=== PATIENT | male | born 1995 | race Caucasian/White ===

== ENCOUNTER 2016-09-14 16:37 | Emergency (ER) | payer BC ==
[2016-09-14 17:15] VITALS: BP 144/56
--- NOTE | 2016-09-14 17:52 | ED ---
Respiratory - HPI Summary HPI Summary: 21M presents with cold like symptoms since Saturday. He states that he feels SOB and has been coughing. He denies any chest pain. He admits to sinus congestion but denies any fever, sore throat, or abdominal pain. He states that his SOB and cough gets worst with excretion. He denies any family history of CAD or blood clots. He denies any pain or swelling in his calf muscles. - History of Current Complaint Chief Complaint: UCRespiratory Stated Complaint: COUGH,CONGESTION Time Seen by Provider: 09/14/16 17:38 - Allergy/Home Medications Allergies/Adverse Reactions: Allergies Allergy/AdvReac Type Severity Reaction Status Date / Time Latex Allergy Mild Rash Verified 09/14/16 17:15 Home Medications: Home Medications buPROPion TAB* [Wellbutrin TAB*] 100 mg PO DAILY 09/14/16 [History Confirmed ] PMH/Surg Hx/FS Hx/Imm Hx Endocrine/Hematology History: Denies: Hx Diabetes, Hx Thyroid Disease Cardiovascular History: Denies: Hx Hypertension Respiratory History: Denies: Hx Asthma, Hx Chronic Obstructive Pulmonary Disease (COPD) GI History: Denies: Hx Ulcer History: Denies: Hx Renal Disease Neurological History: Reports: Hx Seizures - today(01/16) was 1st SZ Psychiatric History: Reports: Hx Anxiety, Hx Depression - Cancer History Cancer Type, Location and Year: anxiety/depression - Surgical History Surgery Procedure, Year, and Place: tubes in ear, tonsil, cleft palate repair. Infectious Disease History: No Infectious Disease History: Denies: Hx Clostridium Difficile, Hx Hepatitis, Hx Human Immunodeficiency Virus (HIV), History Other Infectious Disease, Traveled Outside the [place] in Last 30 Days - Family History Known Family History: Positive: Unknown - unable to obtain from pt Negative: Cardiac Disease - Social History Alcohol Use: None Substance Use Type: Reports: None Substance Use Comment - Amount & Last Used: unknown amounbt wellbutrin prozac Hx Tobacco Use: Yes Smoking Status (MU): Current Every Day Smoker Type: Cigarettes Amount Used/How Often: 1 ppd Have You Smoked in the Last Year: Yes Review of Systems Negative: Fever Negative: Chest Pain Respiratory: Other Positive: Cough Negative: Abdominal Pain All Other Systems Reviewed And Are Negative: Yes Physical Exam Triage Information Reviewed: Yes Vital Signs On Initial Exam: Initial Vitals Temp Pulse Resp BP Pulse Ox 98.9 F 96 18 144/56 100 09/14/16 17:11 09/14/16 17:11 09/14/16 17:11 09/14/16 17:11 09/14/16 17:11 Vital Signs Reviewed: Yes Appearance: Positive: Well-Appearing Skin: Positive: Warm, Dry Head/Face: Positive: Normal Head/Face Inspection Eyes: Positive: Normal, Conjunctiva Clear ENT: Positive: Normal ENT inspection, Pharynx normal, TMs normal Neck: Positive: Supple, Nontender, No Lymphadenopathy Respiratory/Lung Sounds: Positive: Breath Sounds Present, Wheezes, Other - neg egophony Cardiovascular: Positive: Normal, RRR Diagnostics - Vital Signs Vital Signs Temp Pulse Resp BP Pulse Ox 09/14/16 17:11 98.9 F 96 18 144/56 100 - Laboratory Lab Statement: Any lab studies that have been ordered have been reviewed, and results considered in the medical decision making process. Disposition - Course Course Of Treatment: 21M presents with cold like symptoms since Saturday. admits to cough and SOB. is a smoker but does not have asthma. states feels that he is wheezing and heard some wheezes on exam. neg egophony. do not suspect has PE as vitals good. will treat with inhaler and tessalon. patient understands and agrees with plan - Differential Dx - Cardiopulmonary Differential Diagnoses - Cardiopulmonary: Bronchitis, Influenza, Pulmonary Embolism - Diagnoses Provider Diagnoses: Upper respiratory infection Discharge - Discharge Plan Condition: Good Disposition: HOME Prescriptions: Albuterol HFA INHALER* [Ventolin HFA Inhaler*] 1 puff INH Q4H PRN #1 mdi PRN Reason: Cough Benzonatate CAP* [Tessalon 100 MG CAP*] 100 mg PO TID #15 cap Patient Education Materials: Upper Respiratory Infection (ED) Referrals: [facility] [facility] [Outside] Additional Instructions: Use Tessalon three times a day for cough Use inhaler one puff every 4 hours for cough as needed Use saline in the nose for nasal congestion Use humidifier or place warm bowls of water around the room for cough Establish care with primary care physician Return to ED if develop any new or worsening symptoms
== END 2016-09-14 18:20 | disposition home or self-care (01) ==
LOC: UCEAST 16:37
DX: J06.9 Acute upper respiratory infection, unspecified (principal); F17.210 Nicotine dependence, cigarettes, uncomplicated
CPT/HCPCS: 99212; G0463

== ENCOUNTER 2018-03-21 07:34 | Day surgery (SDC) | payer BC ==
--- NOTE | 2018-03-07 07:49 | HP ---
AMENDED REPORT NOW INCLUDES DESIGNATED COSIGNER PREOPERATIVE HISTORY AND PHYSICAL: DATE OF ADMISSION/SURGERY: 03/21/18 DATE OF OFFICE VISIT/ENCOUNTER: 03/05/18 ATTENDING SURGEON: Tyesha Montes MD * (DICTATED BY IRASEMA YAP) PROCEDURE: Right wrist carpal tunnel release. CHIEF COMPLAINT: Bilateral hand numbness and tingling. HISTORY OF PRESENT ILLNESS: This is a 22-year-old transgendered male who complains of numbness and tingling in his bilateral hands, much worse on the right than on the left. This has been going on off and on for years, but more recently it has become quite bothersome in the right hand. He does not have a lot of pain, but he has numbness mainly in the thumb, index and middle fingers. He has not had any nerve conduction studies and he denies any injury. He has tried using a brace at night, which was minimally helpful. 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 He is interested in pursuing surgical intervention at this time for his right wrist. PAST MEDICAL HISTORY: 1. Sleep apnea, no CPAP. 2. 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 3. Depression/anxiety. PAST SURGICAL HISTORY: 1. Cleft palate repair. 2. Tympanostomy tube insertion. 3. Tonsillectomy. 4. Dental surgery. CURRENT MEDICATIONS: 1. Bupropion HCl ER 300 mg daily. 2. Testosterone cypionate. 3. Excedrin [id number] p.r.n. ALLERGIES: No known drug allergies. There is an allergy to LATEX, causes skin irritation. FAMILY MEDICAL HISTORY: Diabetes, cancer, mental illness, and tuberous sclerosis. SOCIAL HISTORY: The patient is employed as an marketing graphics specialist at [employer]. He is a current smoker. He smokes approximately 1/2 pack to 1 pack per day, he has done so for the past 7 years. He denies recreational drug use. He drinks alcohol on occasion. REVIEW OF SYSTEMS: Negative for general, cephalic, cardiovascular, respiratory , GI, . Musculoskeletal: Positive for current complaint and chronic back pain. Integumentary and Endocrine: Negative. Neurologic: Positive for depression/anxiety. Hematologic: Negative. Infectious Disease: Negative for history of MRSA, hepatitis C, HIV. PHYSICAL EXAMINATION GENERAL: Well-developed, well-nourished 22-year-old male, in no acute distress. VITAL SIGNS: Height 5 feet 5 inches, weight 274 pounds. Blood pressure 126/72 , pulse rate 82. HEENT: Normocephalic, atraumatic. Pupils are equal, round, and reactive to light and accommodation. Extraocular movements are intact. Throat is clear. NECK: Supple. No palpable lymph nodes. PULMONARY: Lungs are clear to auscultation bilaterally. No wheezes, rales, or rhonchi. CARDIOVASCULAR: Regular rate and rhythm. S1, S2. No murmurs, rubs, or gallops. No edema. ABDOMEN: Positive bowel sounds. Soft, nontender. NEUROLOGICAL: Alert and oriented x3. Cranial nerves II through XII are intact. MUSCULOSKELETAL: On exam of his right hand, there is no thenar wasting. He has weakness with thumb abduction. He has good motion in his fingers and his wrist. He has a positive median nerve compression test and positive Phalen's test. Sensation is intact to light touch throughout the hand. IMPRESSION: Right carpal tunnel syndrome. PLAN: The patient is scheduled to undergo a right wrist carpal tunnel release with Dr. Montes on 03/21/18. He will return to the office 10 days postop for followup and suture removal. A prescription for Ultracet was e-scribed to the patient's pharmacy for postoperative pain management. IRASEMA YAP [id number]/[facility] #: [id number] [place]
[~2018-03-21 07:34] MED LIST: Buffered Lidocaine 0.9% SYRIN* 5 ML/SYR SYRINGE INTRADERM ONE; Lidocaine 1% INJ* 10 MG/ML 30 ML SDV ONE; Morphine VIAL* 10 MG/ML 1 ML VIAL ONE
[2018-03-21] MEDS ORDERED: Morphine VIAL* 10 MG/ML 1 ML VIAL ONE (08:07)
[2018-03-21] MEDS ORDERED: Naloxone* 0.4 MG/ML 1 ML VIAL IV PRN (08:30)
[2018-03-21] MEDS ORDERED: Lidocaine 2% PF * 5 ML VIAL ONE (08:44)
[2018-03-21] MEDS ORDERED: Propofol* 10 MG/ML 20 ML BTL IV PUSH ONE (08:44)
[2018-03-21] MEDS ORDERED: fentaNYL* 50 MCG/ML 2 ML VIAL (100 MCG VIAL) ONE (08:44)
[2018-03-21 09:28] VITALS: BP 112/78
--- NOTE | 2018-03-21 23:53 | OP ---
DATE OF OPERATION: 03/21/18 - [facility] DATE OF : [birth year] SURGEON: Tyesha Montes MD BUTCHER MEAT: IRASEMA Howard ANESTHESIA: Local MAC. PRE-OP DIAGNOSIS: Right carpal tunnel syndrome. POST-OP DIAGNOSIS: Right carpal tunnel syndrome. OPERATIVE PROCEDURE: Right carpal tunnel release. ESTIMATED BLOOD LOSS: Zero. TOURNIQUET TIME: About 8 minutes. INDICATION FOR PROCEDURE: Dudley is a 22-year-old male with numbness and tingling in the median nerve distribution of his right hand. He presents for right carpal tunnel release. DESCRIPTION OF PROCEDURE: The patient was brought to the operating room, was given a sedation anesthetic and a local infiltration of 10 cc 1% plain lidocaine in the palm of his right hand. Skin of his right hand and forearm was prepped and draped in the usual sterile fashion. The hand and forearm were exsanguinated and the tourniquet elevated to 250 mmHg. A longitudinal incision was made in the palm in line with the ring finger. We dissected sharply through the subcutaneous tissue down to the transverse carpal ligament. The ligament was divided sharply with a knife and then more proximally with the scissors. The nerve was dissected free from the surrounding tissue and there was an area of moderate compression at the mid portion of the ligament. The wound was irrigated and the skin edges reapproximated with 4-0 nylon suture. The wound was dressed with Xeroform, 4x4, Webril and an Wyatt wrap. The patient tolerated the procedure well, was brought to the recovery room in good condition. [id number]/[facility] #: [id number] [facility]
== END 2018-03-21 09:42 | disposition home or self-care (01) ==
LOC: OR 07:34
PROVIDERS: ATTEND Orthopaedic Surgery
DX: G56.01 Carpal tunnel syndrome, right upper limb (principal); F41.8 Other specified anxiety disorders; G47.33 Obstructive sleep apnea (adult) (pediatric)
CPT/HCPCS: J2270; J2704; J3010

== ENCOUNTER 2019-02-26 15:14 | Emergency (ER) | payer BC ==
--- OUTSIDE RECORDS SUMMARY | 2019-02-26 15:21 | XMS REPORT | Continuity of Care Document ---
:1995 Author Organization [facility] Address [address] [place] [address] Phone Care Team Providers Name Role Phone [place] William NP Unavailable Unavailable Allergies, Adverse Reactions, Alerts Substance Reaction Status latex RashRash Active Medications Medication Instructions Dosage Effective Status Comments Dates (start - stop) metronidazole 500 1 tab po bid x 7d - Active mg tablet (#14) condom non-latex Use per packaging - Active Product female VAGINAL instructions with code: [facility] [place] [address]-4 sexual 2. intercourse testosterone inject 0.50 - Active cypionate 200 milliliter mg/mL (100mg) by IM intramuscular oil route every week BD Luer-Celestino Use as directed - Active Syringe 1 mL 20 to draw up gauge x 1" testosterone Hypodermic [place] Use as directed - Active 23 gauge x 1 1/2" to inject testosterone IM ParaGard T 380A - Active 380 square mm intrauterine device WELLBUTRIN Not Available - Active (unknown strength) fluconazole 150 mg 1 po x 1 for - No Longer tablet fungal infection Active (#1) Problems Condition Effective Dates (start - Clinical Status Comments stop) Human immunodeficiency virus - [HIV] counseling Encounter for screening for human - immunodeficiency virus Encntr screen for infections w sexl mode of transmiss Endocrine disorder, unspecified Transsexualism Acute vaginitis Candidiasis of vulva and vagina Encounter for test, result negative Encounter for insertion of intrauterine contraceptive device Encounter for screening for malignant neoplasm of cervix Encntr screen for infections w sexl mode of transmiss Encounter for oth general cnsl and advice on contraception Transsexualism Endocrine disorder, unspecified Encounter for initial prescription of uterin contracep dev Encntr for general adult medical exam w/o abnormal findings Human immunodeficiency virus - [HIV] counseling Encntr screen for infections w sexl mode of transmiss Encounter for screening for human - immunodeficiency virus Encntr screen for dis of the bld/bld-form org/immun mechnsm Transsexualism Endocrine disorder, unspecified Human immunodeficiency virus - [HIV] counseling Transsexualism Endocrine disorder, unspecified Anemia, Screening Unspecified endocrine disorder Unspecified endocrine disorder Unspecified endocrine disorder Anemia, Screening Unspecified endocrine disorder Unspecified endocrine disorder Unspecified endocrine disorder Unspecified endocrine disorder LABORATORY EXAM NOS Hearing loss Active Reads lips Sayadh-fo-xoif transsexual Active Procedures Procedure Date PREVENTIVE COUNSELING, 8-14 Minutes HIV-1/HIV-2, SINGLE ASSAY URINALYSIS, DIP NONAUTO W/O SCOPE OFFICE/OUTPATIENT VISIT, EST N.GONORRHOEAE, DNA, AMP PROB CHYLMD DNA, AMP PROBE TRICHOMONAS VAGIN, DIR PROBE FLUCONAZOLE 150 MG #1 METRONIDAZOLE 500 MG #14 WET SMEAR ASSAY OF BODY FLUID-PH OTHER Medical Services VAGINITIS RX Contraceptive Quality Controller.Svc. Other Quality Controller.Svc. STI Results Test Name Date and Time Measure Units Reference Range Abnormal Flag Status Comments Panel Description: Wet Mount Final Wet Mount 11:09:43 Hyphae/Marleen: yesBudding yeast: Final noTrich: noClue cells: yes (<20%)WBCs: yes (many)Amine/Whiff test: positivepH: 5.0 Panel Description: C trach DNA XXX Ql PCR Final Swab CT - Negative N Final Performed by:
CDD Vaginal 00:00:00 ([id number])

Panel Description: Trichomonas Vaginalis Female Final Trichomonas Negative Negative Final : vaginalis DNA 00:00:00 No

Performed by:
[address] [place] [address] ([facility])

Panel Description: Amplified GC - Vaginal Final Swab GC - Negative N Final : Vaginal 00:00:00 No

Performed by:
CDD ([id number])

Panel Description: Urine Dipstick Final Urine Dipstick 10:54:27 Color: yellowGlucose: Final negativeKetones: negativeProtein: negativeNitrite: negativeLeukocytes: moderateBlood: trace non-hemolyzedpH: 5.0 Advance Directives Directive Yes / No Effective Date File Name No information Encounters Encounter Practice Location Reason(s) Diagnoses Date Provider Providers Description For Visit Copied on Encounter PREVENTIVE [facility] STI Human Sep-2 [place]. Referring COUNSELING, [facility] [place] Testing No immunodeficienc [facility] [place] Provider: 8-14 Minutes [facility] Symptoms y virus [HIV] [address] St, [place], [place] ([place]) ([facility] [address], [facility], 620 [facility], 620 complaint) nter for [place]. [place] [address] [place] screening for St, [place], [place], [place], [place], [address]. [place], immunodeficienc tel:[phone], y virusEncntr [id number] [place] screen for tel:[phone] infections w [phone] sexl mode of transmissEndocr ine disorder, unspecifiedTran ssexualismAcute vaginitisCandid iasis of vulva and vagina [facility] Sep-0 [facility] [place] 4-201 Ashley. [address], [place], [place], [facility], [facility] [address], [place]. [place] tel:[phone] St, [place], [address] [place], [id number], [place] tel:[phone] [facility] Nataliia Groev. [facility] [place] [address] [place] [address], [place], [place], [address], [place], [address] [place], [place], [place], [id number], [place] tel:[phone] [facility] [place] test, De[place]. [address] Provider: [facility] result [address], [place] negativeEncount [place], [place], [facility], [address] [place] [address]. , [address] [place] insertion of tel:[phone] [place] [address], St, [place], intrauterine [address] [place], [place], [place] [address]. [id number], deviceEncounter tel:[phone] [place] for screening [phone] tel:[phone] for malignant [phone] neoplasm of cervixEncntr screen for infections w sexl mode of transmiss [facility] Encounter for [place] Referring [facility] [place] ot general Denia. [address] Provider: [facility] cnsl and advice [address], [place], [place], 620 [facility], [facility] contraceptionTr [address]. [address] [place] anssexualismEnd tel:[phone] St, [place], St, [place], [place] [address] [place], [address]. [place], disorder, tel:[phone], unspecifiedEnco [phone] [place] unter for tel:[phone] initial [phone] prescription of uterin contracep dev [facility] Encntr for Nataliia [place]. Consulting [facility] [place] general adult [address] [place] Provider: [facility] medical exam [address], [place], [place]SE [place] w/[place], [address], [facility]. [facility], [address] findings [place], [place], [place], [id number], [place] tel:[phone] [facility] Human Apr-0 Raphaelidis [facility] [place] immunodeficienc Deedee. [address] y virus [HIV] [address], [place] counselingEncnt [place], [facility], 620 [place] [address]. [place] infections w tel:[phone] St, [place], [place] [address] [place], transmissEncoun [id number], ter for [place] screening for tel:[phone] human [phone] immunodeficienc y virus [facility] Encntr screen Autumn Referring [facility] [place] for dis of the Deedee. [address] Provider: [place] bld/bld-form [address], [place] org/immun [place], Autumn [facility], [facility] mechnsmTranssex [address]. , [address] [place] ualismEndocrine tel:[phone] [place] [place] [address], St, [place], disorder, [address] [place], [place], [place], unspecified [address]. [id number], tel:[phone] [place] [phone] tel:[phone] [facility] Human Nov- P[facility]te [facility] [place] immunodeficienc Denia. [address] y virus [HIV] [address], [place] counselingTrans [place], [facility], 620 sexualism [address]. [address] [place] tel:+[phone] St, [place], [address] [place], [id number], [place] tel:[phone] [facility] Endocrine Feb-0 [place]. [facility] [place] disorder, [address] [place] [address] unspecified [address], [place], [place], [address]. [facility], 620 tel:[phone] [address] [place] [address], [place], [place], [id number], [place] tel:[phone] [facility] Anemia, Britton-1 B[place]. [facility] [place] ScreeningUnspec [address] [place] [address] ified endocrine [address], [place], [place], [address]. [facility], 620 tel:[phone] [address] [place] [address], [place], [place], [id number], [place] tel:[phone] [facility] Unspecified Feb-2 [place]. [facility] [place] endocrine [address] [place] [address] disorder [address], [place], [place], [address]. [facility], 620 tel:[phone] [address] [place] [address] , [place], [place], [id number], [place] tel:[phone] [facility] Unspecified Dec-0 [place]. [facility] [place] endocrine 1- [address] [place] [address] disorder [address], [place], [place], [address]. [facility], 620 tel:[phone] [address] [place] [address] , [place], [place], [id number], [place] tel:[phone] [facility] Anemia, Oct-0 B[place]. [facility] [place] Screening 3 [address] [place] [address], [place], [facility], [address]. [facility], 620 tel:[phone] [address] [place] [address] [place], [place], [id number], [place] tel:[phone] [facility] Unspecified Sep-1 [place]. [facility]ing [facility] [place] endocrine 7- [address] [place] Provider: [place] disorder 4 [facility], NURSE [place] [facility], [address]. [facility]. [facility], [facility] tel:[phone] [address] [place] [address] [place], [place], [id number], [place] tel:[phone] [facility] Sep-1 Bren [facility] [place] 6 Maryellen. [address], [facility], [place], [facility], [facility] [address]. [address] [place] tel:[phone] [facility], [address] [place] [address], [id number], [place] tel:[phone] [facility] Unspecified Sep-0 [place]. [facility]ing [facility] [place] endocrine 8- [address] [place] Provider: [place] disorder 4 [facility], [place]SE [place] [facility], [address]. [facility]. [facility], [facility] tel:[phone] [address] [place] [address] [place], [place], [id number], [place] tel:[phone] [facility] Unspecified Sep-0 B[place]. [facility] [place] endocrine 4- [address] [place] [address] disorder [address], [place], [facility], [address]. [facility], 620 tel:[phone] [address] [place] [address], [place], [place], [id number], [place] tel:[phone] [facility] Unspecified [facility]ing [facility] [place] endocrine 5-201 Natalie. [address] W Provider: [facility] [address], NURSE [place] [facility] [place], [place], [facility]. [facility], [facility] [address]. [address] [place] tel:+[phone] St, [place], [address] [place], [id number], [place] tel:[phone] [facility] LABORATORY EXAM [facility] [place] NOS 3-201 Steven. [address], [place], [place], [facility], [facility] [address]. [address] [place] tel:+[phone] St, [place], [address] [place], [id number], [place] tel:[phone] Family History Family Member Diagnosis Age At Onset Paternal grandmother Cancer, breast Father Hyperlipidemia Maternal grandmother Cancer, breast Father Family history of thyroid cancer Paternal grandfather Diabetes mellitus Immunizations Vaccine Date Status Comments Hep B, adult, 3 dose administered Note: Pt reports prior vaccination on health history form dated 01/26/12.Invalid documented admin date was NULL/NULL/2011. ; Source: Source Unspecified measles, mumps and rubella administered Note: Pt reports prior virus vaccine vaccination on health history form dated 01/26/12.Invalid documented admin date was NULL/NULL/2011. ; Source: Source Unspecified HPV (quadrivalent) administered Note: Pt reports prior vaccination on health history form dated 01/26/12.Invalid documented admin date was NULL/NULL/2011. ; Source: Source Unspecified Payers Payer name Insurance type Covered constitution party ID Authorization(s) [facility] [id number] Social History Type Description Quantity Date Captured Comments Alcohol Use Details Unknown Caffeine Use Details Unknown Tobacco Use Status Moderate cigarette smoker (10-19 cigs/day) Smoking Status Heavy tobacco smoker Smoking Tobacco Use Cigarette: Years Used 2 Cigarette: 0.5 Packs per day, Pack Year: 1 Details Sex Male Vital Signs Date / Height Weight BMI Pulse Blood Temperature Respiratory Body Head BMI Pulse Inhaled Time: Rate Pressure Rate Surface Circumference percentile Ox Ox Area No information Chief Complaint And Reason For Visit Most recent encounter only, dated '02/09/2019 09:50'. STI Testing No Symptoms (M) (chief complaint) Reason For Referral Reason For Referral No information Plan Of Treatment Date Type Action Status Goal Tobacco cessation counseling completed Goal Tobacco cessation counseling completed Goal Tobacco cessation counseling completed Goal Tobacco cessation counseling completed History Of Present Illness Encounter Date Complaint History Of Present Illness No information Functional Status Date Functional Assessment No information Medications Administered Medication Instructions Dosage Effective Dates (start - stop) Status Comments No information Instructions Date Instruction Additional Information No information Assessments Type Assessment Date assessment Human immunodeficiency virus [HIV] counseling assessment Encounter for screening for human immunodeficiency virus 2018 assessment Encntr screen for infections w sexl mode of transmiss assessment Endocrine disorder, unspecified assessment Transsexualism assessment Acute vaginitis assessment Candidiasis of vulva and vagina Goals Health Concern Goal Type Priority Status Date No information Medical Equipment Description Device [place] Device Identifier Effective Dates (start - stop ) Status No information Mental Status Date Cognitive Assessment No information Health Concerns Observation Date No information Concern Status Date No information
--- OUTSIDE RECORDS SUMMARY | 2019-02-26 15:22 | XMS REPORT | Continuity of Care Document ---
:1995 Author Organization [facility] Address [address] [place] [address] Phone Care Team Providers Name Role Phone [place] William NP Unavailable Unavailable Allergies, Adverse Reactions, Alerts Substance Reaction Status latex RashRash Active Medications Medication Instructions Dosage Effective Status Comments Dates (start - stop) metronidazole 500 1 tab po bid x 7d - Active mg tablet (#14) fluconazole 150 mg 1 po x 1 for - Active tablet fungal infection (#1) condom non-latex Use per packaging - Active Product code: female VAGINAL instructions with [facility] PACKAGE each act of sexual [address]-88 intercourse . testosterone inject 0.50 - Active cypionate 200 mg/mL milliliter (100mg) intramuscular oil by IM route every week BD Luer-Celestino Syringe Use as directed to - Active 1 mL 20 gauge x 1" draw up testosterone Hypodermic Wayne Use as directed to - Active 23 gauge x 1 1/2" inject testosterone IM ParaGard T 380A 380 - Active square mm intrauterine device WELLBUTRIN (unknown Not Available - Active strength) Problems Condition Effective Dates (start - Clinical [...] EXAM NOS Hearing loss Active Reads lips Nmllgq-qu-ciyy transsexual Active Procedures Procedure Date PREVENTIVE COUNSELING, 8-14 Minutes HIV-1/HIV-2, SINGLE ASSAY URINALYSIS, DIP NONAUTO W/O SCOPE OFFICE/OUTPATIENT VISIT, EST N.GONORRHOEAE, DNA, AMP PROB CHYLMD DNA, AMP PROBE TRICHOMONAS VAGIN, DIR PROBE FLUCONAZOLE 150 MG #1 METRONIDAZOLE 500 MG #14 WET SMEAR ASSAY OF BODY FLUID-PH OTHER Medical Services VAGINITIS RX Contraceptive Heading And Priming Operator.Svc. Other Heading And Priming Operator.Svc. STI Results Test Name Date and Time Measure Units Reference Range Abnormal Flag Status Comments Panel Description: Wet Mount Final Wet Mount 11:09:43 Hyphae/Marleen: yesBudding yeast: Final noTrich: noClue cells: yes (<20%)WBCs: yes (many)Amine/Whiff test: positivepH: 5.0 Panel Description: Urine Dipstick Final Urine Dipstick 10:54:27 Color: yellowGlucose: Final negativeKetones: negativeProtein: negativeNitrite: negativeLeukocytes: moderateBlood: trace non-hemolyzedpH: 5.0 Advance Directives Directive Yes / No Effective Date File Name No information Encounters Encounter Practice Location Reason(s) Diagnoses Date Provider Providers Description For Visit Copied on Encounter PREVENTIVE [facility]I Human Sep-2 [place]ia [place]. Referring COUNSELING, [facility] [place] Testing No immunodeficienc [address] Provider: 8-14 Minutes Southern Symptoms y virus [HIV] 9 St, [place], Sar[place] ([place]) ([place], [address], Bales, 620 [facility], 620 complaint) nter for [place]. [address] screening for [place], [place], [place], [place], [place], [address]. [place], immunodeficienc tel:[phone], y virusEncntr [id number] [place] screen for tel:[phone] infections w [id number] sexl mode of transmissEndocr ine disorder, unspecifiedTran ssexualismAcute vaginitisCandid iasis of vulva and vagina [facility] Jan-0 [facility] [place]. [address], [place], [place], [address], [place]. [address] tel:[phone] St, [place], [address] [place], [id number], [place] tel:[phone] [facility] [place]. [facility] [place] [address], [place], [place], [address], [place], [address] [place], [place], [id number], [place] tel:[phone] [facility] Encounter for Jul-0 Autumn Referring [facility] [place] test, Deedee. 620 W Provider: [facility] result [address], [place] negativeEncount [place], Raphaelidis [facility], [facility] [address]. , [address] insertion of tel:[phone], [place], [place], [place] [address] [place] [address]. [id number], deviceEncounter tel:[phone] [place] for screening [phone] tel:[phone] for malignant [phone] neoplasm of cervixEncntr screen for infections w sexl mode of transmiss [facility] Encounter for Parete Referring Parenthood [facility], [facility] general Novia. 620 W Provider: Slade cnsl and advice [address], [place], [place], 620 [facility], 620 contraceptionTr [address]. [address] anssexualismEnd tel:[phone] St, [place], [place], [place], [place] [address] [place], [address]. [place], disorder, tel:[phone], unspecifiedEnco 922336 [place] unter for tel:[phone] initial [phone] prescription of uterin contracep dev [facility] Encntr for [place]. Consulting [facility] [place] general adult [address] Provider: [facility] medical exam 8 St, [place], N[place]SE [place], [address], [facility]. [facility], 620 findings [place]. [address], [place], [id number], [place] tel:[phone] [facility] Human [facility]- [facility] [place] immunodeficienc - Deedee. [address] [place] y virus [HIV] [address], [place] counselingEncnt [place], [facility], 620 [place] [address]. [address] infections w tel:[phone] St, [place], [place] [address] [place], transmissEncoun [id number], ter for [place] screening for tel:[phone] human [phone] immunodeficienc y virus [facility] Encntr screen [facility] Referring [facility] [place] for dis of the Deedee. 620 W Provider: [facility] bld/bld-form [address], [place] org/immun [place], Raphshellyidis [facility], 620 mechnsmTranssex [address]. , [address] ualismEndocrine tel:[phone] [address], [place], [place], [place], [address] [place], [place] [address]. [id number], tel:[phone] [place] 516318 tel:[phone] [facility] Human Nov-2 Parete [facility] [place] immunodeficienc Novia. [address] y virus [HIV] [address], [place] counselingTrans [place], [facility], 620 sexualism [address]. [address] tel:[phone] St, [place], [address] [place], [id number], [place] tel:[phone] [facility] Endocrine Feb-0 [place] Saray. [facility] [place] disorder, 8 [address] Southern unspecified [address], [place], [place], [address]. [facility], 620 tel:[phone] [address], [place], [place], [id number], [place] tel:[phone] [facility] Anemia, Britton- [place] Saray. [facility] [place] ScreeningUnspec 3- [address] Southern ified endocrine [address], [place], [place], [address]. [facility], 620 tel:[phone] [address], [place], [place], [id number], [place] tel:[phone] [facility] Unspecified Feb-2 [place] Saray. [facility] [place] endocrine 6 [address] Southern disorder [address], [place], [place], [address]. [facility], 620 tel:[phone] [address], [place], [place], [id number], [place] tel:[phone] [facility] Unspecified Dec-0 [place] Saray. [facility] [place] endocrine 1- [address] disorder [address], [place], [place], [address]. [facility], 620 tel:[phone] [address], [place], [place], [id number], [place] tel:[phone] [facility] Anemia, Oct-0 [place] Saray. [facility] [place] Screening 3-201 [address], [place], [place], [address]. [facility], 620 tel:[phone] [address] [address] , [place], [place], [id number], [place] tel:[phone] [facility] Unspecified Sep-1 [place] Saray. Consulting [facility] [place] endocrine 7-201 [address] Provider: Southern disorder [address], [place], NURSE OR [place] [facility], [address]. [facility]. [facility], 620 tel:[phone] [address] [address] , [place], [place], [id number], [place] tel:[phone] [facility] Sep-1 Bren [facility] [place] 6-201 Maryellen. [address], [place], [facility], 620 [address]. [address] tel:[phone] , [place], [address] [place], [id number], [place] tel:[phone] [facility] Unspecified Sep-0 [place] Saray. Consulting [facility] [place] endocrine 8 [address] Provider: [facility] UMM [facility], [address]. [facility]. [facility], 620 tel:[phone] [address] [address] , [place], [place], [id number], [place] tel:[phone] [facility] Unspecified Sep-0 [place] Saray. [facility] [place] endocrine 4-201 [address] Southern disorder [address], [place], [facility], [address]. [facility], 620 tel:[phone] [address] [address] [place], [place], [id number], [place] tel:[phone] [facility] Unspecified Aug-2 Avidano Consulting [facility] [place] endocrine 5-201 Natalie. 620 W Provider: Southern disorder [address], NURSE [place], [place], [facility]. [facility], [facility] [address]. [address] tel:[phone] St, [place], [address] [place], [id number], [place] tel:[phone] [facility] LABORATORY EXAM Feb-0 Ottoson [facility] [place] NOS 3-201 Steven. [address], [place], [facility], 620 [address]. [address] tel:[phone] St, [place], [address] [place], [id number], [place] tel:[phone] Family History Family Member Diagnosis Age At [...] Unspecified Payers Payer name Insurance type Covered democrat ID Authorization(s) [facility] [id number] Social History Type Description Quantity Date Captured [...] Date No information Medical Equipment Description Device Cadott Device Identifier Effective Dates (start - stop ) Status No information Mental Status Date Cognitive Assessment No information Health Concerns Observation Date No information Concern Status Date No information
--- OUTSIDE RECORDS SUMMARY | 2019-02-26 15:22 | XMS REPORT | Continuity of Care Document ---
:1995 Author Organization [facility] Address [address] [place] [address] Phone Care Team Providers Name Role Phone Ashley Stone Unavailable Unavailable Allergies, Adverse Reactions, Alerts Substance Reaction Status latex RashRash Active Medications Medication Instructions Dosage Effective Status Comments Dates (start - stop) condom non-latex Use per packaging - Active Product female VAGINAL instructions with code: NDC [place] [address]-4 sexual 2. intercourse testosterone inject 0.50 - Active cypionate 200 milliliter mg/mL (100mg) by IM intramuscular oil route every week BD Luer-Celestino Use as directed - Active Syringe 1 mL 20 to draw up gauge x 1" testosterone Hypodermic Junction Use as directed - Active 23 gauge x 1 1/2" to inject testosterone IM ParaGard T 380A - Active 380 square mm intrauterine device WELLBUTRIN Not Available - Active (unknown strength) condom non-latex Use per packaging - No Longer Product female VAGINAL instructions with Active code: NDC [place]ACK[place] [address]-5 sexual 2. intercourse Problems Condition Effective Dates (start - Clinical Status Comments stop) Encounter for test, result negative Encounter for [...] EXAM NOS Hearing loss Active Reads lips Uhevku-bb-gacq transsexual Active Procedures Procedure Date No information Results Test Name Date and Time Measure Units Reference Range Abnormal Flag Status Comments No information Advance Directives Directive Yes / No Effective Date File Name No information Encounters Encounter Practice Location Reason(s) Diagnoses Date Provider Providers Description For Visit Copied on Encounter [facility] Sep-0 [facility] [place] Ashley. [address] , [place], [place], [place] [address], [place]. [address] tel:[phone] , [place], [address] [place], [id number], [place] tel:[phone] [facility] [place]. [facility] [place] [address] 9 , [place], [place], [address], [facility], 620 [place]. [address], [place], [place], [id number], [place] tel:[phone] [facility] Encounter for Mar-0 [facility], Deedee. 620 W Provider: [facility] result [address], [place] negativeEncount [place], [place], [place] [address] [place] [address]. , [address] insertion of tel:[phone] [address], St, [place], intrauterine [address] [place], [place], [place], contraceptive [address]. [id number], deviceEncounter tel:[phone] [place] for screening [id number] tel:[phone] for malignant [phone] neoplasm of cervixEncntr screen for infections w sexl mode of transmiss [facility] Encounter for Parete Referring Parenthood [facility] general . 620 W Provider: Slade cnsl and advice [address], [place], [place], 620 [facility], 620 contraceptionTr [address]. [address] anssexualismEnd tel:[phone] St, [place], St, [place], [place] [address] [place], [address]. [place], disorder, tel:[phone], unspecifiedEnco 085825 [place] unter for tel:[phone] initial [phone] prescription of uterin contracep dev [facility] Encntr for Nataliia [place]. Consulting [facility] [place] general adult [address] Provider: [facility] medical exam 8 , [place], [place], [address], [facility]. [facility], [facility] findings [place]. [address], [place], [place], [id number], [place] tel:[phone] [facility] Human Aug- [facility] [place] immunodeficienc Deedee. [address] y virus [HIV] [address], [place] counselingEncnt [place], [place], [facility], [facility] [place] [address]. [address] infections w tel:[phone] , [place] [address] [place], transmissEncoun [id number], ter for [place] screening for tel:[phone] human [phone] immunodeficienc y virus [facility] Encntr screen [facility] Referring [facility] [place] for dis of the Deedee. 620 W Provider: [facility] bld/bld-form [address], [place] org/immun [place], [place], Autumn [facility], [facility] mechnsmTranssex [address]. , [address] ualismEndocrine tel:[phone] [address], St, [place], [place], [address] [place], [place], [place] [address]. [id number], tel:[phone] [place] 836628 tel:[phone] [facility] Human Nov- Parete [facility] [place] immunodeficienc . [address] y virus [HIV] [address], [place] counselingTrans [place], [place], [facility], 620 sexualism [address]. [address] tel:[phone] St, [place], [address] [place], [id number], [place] tel:[phone] [facility] Endocrine Feb-0 [place] Saray. [facility] [place] disorder, [address] Southern unspecified [address], [place], [place], [address]. [facility], 620 tel:[phone] [address] [address] [address], [place], [place], [id number], [place] tel:[phone] [facility] Anemia, Britton-1 B[place] Saray. [facility] [place] ScreeningUnspec [address] Southern ified endocrine [address], [place], [place], [address]. [facility], [facility] tel:[phone] [address] [address] [address], [place], [place], [id number], [place] tel:[phone] [facility] Unspecified Feb-2 B[place] Saray. [facility] [place] endocrine [address] Southern disorder [address], [place], [place], [address]. [facility], [facility] tel:[phone] [address], [place], [place], [id number], [place] tel:[phone] [facility] Unspecified Dec-0 B[place] Saray. [facility] [place] endocrine [address] disorder [address], [place], [place], [address]. [facility], [facility] tel:[phone] [address], [place], [place], [id number], [place] tel:[phone] [facility] Anemia, Oct-0 Bales Saray. [facility] [place] Screening 3 [address], [place], [place], [address]. [facility], [facility] tel:[phone] [address] [address] [address], [place], [place], [id number], [place] tel:[phone] [facility] Unspecified Sep-1 Bales Saray. Consulting [facility] [place] endocrine 7- [address] Provider: Southern disorder 4 [facility], NURSE OR [place] [facility], [address]. [facility]. [facility], [facility] tel:[phone] [address] [address] , [place], [place], [id number], [place] tel:[phone] [facility] Sep-1 Bren [facility] [place] 6-201 Maryellen. [address], [place], [place], [facility], 620 [address]. [address] tel:[phone] , [place], [address] [place], [id number], [place] tel:[phone] [facility] Unspecified Sep-0 Bales Saray. Consulting [facility] [place] endocrine 8 [address] Provider: Southern disorder 4 , [place], NURSE OR UMM [facility], [address]. [facility]. [facility], [facility] tel:[phone] [address] [address] [place], [place], [id number], [place] tel:[phone] [facility] Unspecified Sep-0 Bales Saray. [facility] [place] endocrine 4- [address] Southern disorder 4 , [place], [facility], [address]. [facility], [facility] tel:[phone] [address] [address] [place], [place], [id number], [place] tel:[phone] [facility] Unspecified Aug-2 [facility] Consulting [facility] [place] endocrine 5-201 Natalie. 620 W Provider: Southern disorder [address], NURSE [place], [place], [facility]. [place] [address]. [address] tel:[phone] , [place], [address] [place], [id number], [place] tel:[phone] [facility] LABORATORY EXAM Feb-0 [facility] [place] NOS 3-201 Steven. [address], [facility], [place], [facility], [facility] [address]. [address] tel:[phone] St, [place], [address] [place], [id number], [place] tel:[phone] Family History Family Member Diagnosis Age At [...] Unspecified Payers Payer name Insurance type Covered alliance party ID Authorization(s) [facility] [id number] Social History Type Description Quantity Date Captured Comments Alcohol Use Details Unknown Caffeine Use Details Unknown Tobacco Use Status Smoking Status Heavy tobacco smoker Sex Male Vital Signs Date / Height Weight BMI Pulse Blood Temperature Respiratory Body Head BMI Pulse Inhaled Time: Rate Pressure Rate Surface Circumference percentile [place] No information Chief Complaint And Reason For Visit No information Reason For Referral Reason For Referral No information Plan Of Treatment Date Type Action Status Goal Tobacco cessation counseling completed Goal Tobacco cessation counseling completed Goal Tobacco cessation counseling completed Goal Tobacco cessation counseling completed History Of Present Illness Encounter Date Complaint History Of Present Illness No information Functional Status Date Functional Assessment No information Medications Administered Medication Instructions Dosage Effective Dates Status Comments (start - stop) condom non-latex Use per packaging - No Longer Product code: female VAGINAL instructions with Active NDC PACKAGE each act of sexual [address]-55. intercourse Instructions Date Instruction Additional Information No information Assessments Type Assessment Date No information Goals Health Concern Goal Type Priority Status Date No information Medical Equipment Description Device [place] Device Identifier Effective Dates (start - stop ) Status No information Mental Status Date Cognitive Assessment No information Health Concerns Observation Date No information Concern Status Date No information
[2019-02-26 15:59] VITALS: BP 119/76
--- NOTE | 2019-02-26 16:38 | UC ---
Throat Pain/Nasal Hussain HPI - HPI Summary HPI Summary: 23-year-old male comes in with a chief complaint of sore throat for last several days. Has been having some postnasal drip and sinus pressure for more than a week. Rhinorrhea is clear. Patient reports he was on metronidazole twice a day for a week finishing in about 10 days ago for bacterial vaginitis. No complaint of of chest congestion or shortness of breath. - History of Current Complaint Chief Complaint: UCRespiratory Stated Complaint: POSS STREP Time Seen by Provider: 02/26/19 16:14 Pain Intensity: 0 - Allergies/Home Medications Allergies/Adverse Reactions: Allergies Allergy/AdvReac Type Severity Reaction Status Date / Time Latex, Natural Rubber Allergy Mild Rash Verified 02/26/19 15:59 PMH/Surg Hx/FS Hx/Imm Hx Previously Healthy: Yes - Surgical History Surgical History: Yes Surgery Procedure, Year, and Place: tubes in ear, tonsil, cleft palate repair. 6 teeth removed - Family History Known Family History: Positive: Unknown - unable to obtain from pt Negative: Cardiac Disease - Social History Alcohol Use: Rare Substance Use Type: None Substance Use Comment - Amount & Last Used: unknown amounbt wellbutrin prozac Smoking Status (MU): Light Every Day Tobacco Smoker Type: Cigarettes Amount Used/How Often: 1/2 ppd 6 years Have You Smoked in the Last Year: Yes Household Exposure Type: Cigarettes - Immunization History Most Recent Influenza Vaccination: last season Most Recent Tetanus Shot: > 10 years ago Most Recent Pneumonia Vaccination: never Review of Systems All Other Systems Reviewed And Are Negative: Yes Constitutional: Positive: Negative Skin: Positive: Negative Eyes: Positive: Negative ENT: Positive: Sore Throat, Nasal Discharge, Sinus Congestion, Sinus Pain/ Tenderness Respiratory: Positive: Negative Cardiovascular: Positive: Negative Gastrointestinal: Positive: Negative Motor: Positive: Negative Neurovascular: Positive: Negative Musculoskeletal: Positive: Negative Neurological: Positive: Negative Psychological: Positive: Negative Is Patient Immunocompromised?: No Physical Exam Triage Information Reviewed: Yes Appearance: Well-Appearing, No Pain Distress, Well-Nourished Vital Signs: Initial Vital Signs Temp 97.9 F 02/26/19 15:55 Pulse 81 02/26/19 15:55 Resp 16 02/26/19 15:55 BP 119/76 02/26/19 15:55 Pulse Ox 98 02/26/19 15:55 Vital Signs Reviewed: Yes Eye Exam: Normal Eyes: Positive: Conjunctiva Clear ENT: Positive: Pharyngeal erythema, Nasal congestion, Nasal drainage, TMs normal Neck: Positive: Supple Respiratory: Positive: Lungs clear, Normal breath sounds, No respiratory distress Cardiovascular: Positive: RRR Musculoskeletal: Positive: Strength Intact, ROM Intact Neurological: Positive: Alert, Muscle Tone Normal Psychological: Positive: Age Appropriate Behavior Skin Exam: Normal Throat Pain/Nasal Course/Dx - Course Course Of Treatment: Strep is negative. Patient does have sinus pressure however was rhinorrhea is clear. Was recently on antibiotics. We discussed viral versus bacterial infections and the role of antibiotics at this time the patient prefers to not be on an antibiotic is not necessary. Will treat with Flonase saline nasal spray another [id number] treatments. Reevaluate if worse or not improved. - Differential Dx/Diagnosis Provider Diagnosis: Pharyngitis, Upper respiratory infection Discharge ED - Sign-Out/Discharge Documenting (check all that apply): Patient Departure All imaging exams completed and their final reports reviewed: No Studies - Discharge Plan Condition: Stable Disposition: HOME Prescriptions: Fluticasone NASAL SPRAY 50MCG* [Flonase NASAL SPRAY 50MCG*] 2 spray BOTH NARES DAILY #1 btl Patient Education Materials: Pharyngitis (ED), Upper Respiratory Infection (ED) Referrals: Dung Pearson MD [Primary Care Provider] - Additional Instructions: FOLLOW UP WITH YOUR DOCTOR IF NOT COMPLETELY IMPROVED. GET RECHECKED SOONER IF YOUR CONDITION WORSENS OR ANY QUESTIONS OR CONCERNS. - Billing Disposition and Condition Condition: STABLE Disposition: Home
== END 2019-02-26 16:54 | disposition home or self-care (01) ==
LOC: UCEAST 15:14
DX: J02.9 Acute pharyngitis, unspecified (principal); F17.210 Nicotine dependence, cigarettes, uncomplicated; Z91.040 Latex allergy status
CPT/HCPCS: 87651; 99212; G0463